=== PATIENT | female | born 1960 | race Hispanic/Latino ===

== ENCOUNTER 2018-09-18 01:42 | Emergency (ER) | payer MEDICARE ==
[~2018-09-18] VITALS: Ht 149.9 cm; Wt 77.1 kg
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
--- OUTSIDE RECORDS SUMMARY | 2018-09-18 01:45 | XMS REPORT | CCD ---
Author Author Auto Generated Organization [facility] [place] Address Unknown Phone Unavailable Care Team Providers Care Agriculture Laboratory Technician Name Role Phone Gary Samayoa CP Allergies, Adverse Reactions, Alerts Substance Reaction Status penicillin Tongue swelling Active Problem List Condition Effective Dates Status Cholesterol Active Diabetes mellitus Active Hernia Active Hypertension Active Infection1, 2 10/08/2014 Active Wrist sprain Active 1Dr. Danita's office ([place]) made aware 2sinus infection Medications Medication Instructions Start Date End Date Status Saline Lock Flush 10 mL, Soln, IV Push, As Indicated 10/15/2014 10/16/2014 Discontinued PRN for flush, first dose 10/15/14 18:30:00 CDT vancomycin Increased MRSA rate 10/15/2014 10/15/2014 Completed (facility/procedure), 500 mg, Soln-IV, IV Piggyback, Once, infuse over 90 minutes, first dose 10/15/14 9:00:00 CDT, stop date 10/15/14 9:00:00 CDT insulin regular 2 - 10 units, Injection, 10/16/2014 10/16/2014 Completed sliding scale LOW Subcutaneous, first dose 10/16/14 7:30:00 CDT insulin regular 2 - 10 units, Injection, 10/15/2014 10/15/2014 Completed sliding scale LOW Subcutaneous, first dose 10/15/14 21:00:00 CDT insulin regular 2 - 10 units, Injection, 10/15/2014 10/16/2014 Discontinued sliding scale LOW Subcutaneous, QIDACHS, first dose 10/15/14 21:00:00 CDT LR 1,000 mL 1,000 mL, IV, 30 mL/hr, start date 10/15/2014 10/15/2014 Discontinued 10/15/14 8:16:00 CDT Lidocaine 2% 0.2 mL 0.2 mL, Injection, Subcutaneous, 10/15/2014 10/15/2014 Completed IV Start [[place]] Once PRN for other (see comment), first dose 10/15/14 8:16:00 CDT Zofran ODT 4 mg oral 4 mg=1 tabs, Oral, q6hr, PRN 10/16/2014 10/16/2014 Discontinued tablet, nausea, # 120 tabs, 0 Refill(s) disintegrating Zofran 4 mg oral 4 mg=1 tabs, Oral, q6hr, PRN 10/16/2014 10/16/2014 Discontinued tablet nausea, # 120 tabs, 0 Refill(s) metFORMIN 1,000 mg=2 tabs, Tab, Oral, Daily, 10/15/2014 10/16/2014 Discontinued first dose 10/15/14 21:00:00 CDT Benicar 40 mg=1 tabs, Tab, Oral, Daily, 10/15/2014 10/16/2014 Discontinued first dose 10/15/14 21:00:00 CDT, Patient's Own Meds [place] 10 mg-325 mg 1 tabs, Tab, Oral, q4hr PRN for 10/15/2014 10/16/2014 Discontinued oral tablet pain mild-moderate (1-6), first dose 10/15/14 18:13:00 CDTMax 4gm acetaminophen in 24 hours [place] 10 mg-325 mg 12 tabs, Tab, Oral, q4hr PRN for 10/15/2014 10/15/2014 Discontinued oral tablet pain mild-moderate (1-6), first dose 10/15/14 18:12:00 CDTMax 4gm acetaminophen in 24 hours midazolam 1 mg=1 mL, Injection, IV, Once, 10/15/2014 10/15/2014 Completed first dose 10/15/14 10:19:00 CDT, stop date 10/15/14 10:19:00 CDT midazolam 1 mg=1 mL, Injection, IV, Once, 10/15/2014 10/15/2014 Completed first dose 10/15/14 10:13:00 CDT, stop date 10/15/14 10:13:00 CDT rocuronium 10 mg=1 mL, Injection, IV, Once, 10/15/2014 10/15/2014 Completed first dose 10/15/14 11:14:00 CDT, stop date 10/15/14 11:14:00 CDT fentaNYL 50 mcg=1 mL, Injection, IV, Once, 10/15/2014 10/15/2014 Completed first dose 10/15/14 11:14:00 CDT, stop date 10/15/14 11:14:00 CDT propofol 75 mg=7.5 mL, Emulsion, IV, Once, 10/15/2014 10/15/2014 Completed first dose 10/15/14 11:14:00 CDT, stop date 10/15/14 11:14:00 CDT HYDROmorphone 0.6 mg=0.3 mL, Injection, IV, Once, 10/15/2014 10/15/2014 Completed first dose 10/15/14 12:38:00 CDT, stop date 10/15/14 12:38:00 CDT fentaNYL 100 mcg=2 mL, Injection, IV, Once, 10/15/2014 10/15/2014 Completed first dose 10/15/14 10:33:00 CDT, stop date 10/15/14 10:33:00 CDT HYDROmorphone 0.2 mg=0.1 mL, Injection, IV, Once, 10/15/2014 10/15/2014 Completed first dose 10/15/14 11:53:00 CDT, stop date 10/15/14 11:53:00 CDT HYDROmorphone 0.2 mg=0.1 mL, Injection, IV, Once, 10/15/2014 10/15/2014 Completed first dose 10/15/14 12:06:00 CDT, stop date 10/15/14 12:06:00 CDT rocuronium 20 mg=2 mL, Injection, IV, Once, 10/15/2014 10/15/2014 Completed first dose 10/15/14 12:20:00 CDT, stop date 10/15/14 12:20:00 CDT neostigmine 4 mg=4 mL, Injection, IV, Once, 10/15/2014 10/15/2014 Completed first dose 10/15/14 13:00:00 CDT, stop date 10/15/14 13:00:00 CDT HYDROmorphone 0.4 mg=0.2 mL, Injection, IV, Once, 10/15/2014 10/15/2014 Completed first dose 10/15/14 12:42:00 CDT, stop date 10/15/14 12:42:00 CDT ibuprofen 800 mg 800 mg=1 tabs, Oral, TID, 0 10/12/2014 10/26/2014 Ordered oral tablet Refill(s), right wrist sprain Levaquin 500 mg oral 500 mg=1 tabs, Oral, qPM, 0 10/08/2014 10/26/2014 Ordered tablet Refill(s), sinus infection propofol 25 mg=2.5 mL, Emulsion, IV, Once, 10/15/2014 10/15/2014 Completed first dose 10/15/14 10:30:00 CDT, stop date 10/15/14 10:30:00 CDT rocuronium 10 mg=1 mL, Injection, IV, Once, 10/15/2014 10/15/2014 Completed first dose 10/15/14 10:27:00 CDT, stop date 10/15/14 10:27:00 CDT Misc Medication 1,000 mL, Soln-IV, IV, Once, first 10/15/2014 10/15/2014 Completed dose 10/15/14 10:58:00 CDT, stop date 10/15/14 10:58:00 CDT succinylcholine 120 mg=6 mL, Injection, IV, Once, 10/15/2014 10/15/2014 Completed first dose 10/15/14 10:27:00 CDT, stop date 10/15/14 10:27:00 CDT rocuronium 25 mg=2.5 mL, Injection, IV, Once, 10/15/2014 10/15/2014 Completed first dose 10/15/14 10:35:00 CDT, stop date 10/15/14 10:35:00 CDT lidocaine 4 mL, Injection, IV, Once, first 10/15/2014 10/15/2014 Completed dose 10/15/14 10:27:00 CDT, stop date 10/15/14 10:27:00 CDT propofol 100 mg=10 mL, Emulsion, IV, Once, 10/15/2014 10/15/2014 Completed first dose 10/15/14 10:27:00 CDT, stop date 10/15/14 10:27:00 CDT fentaNYL 100 mcg=2 mL, Injection, IV, Once, 10/15/2014 10/15/2014 Completed first dose 10/15/14 10:27:00 CDT, stop date 10/15/14 10:27:00 CDT acetaminophen 1,000 mg, Soln-IV, IV, Once, first 10/15/2014 10/15/2014 Completed dose 10/15/14 10:44:00 CDT, stop date 10/15/14 10:44:00 CDT vancomycin 1 gm, Powder-Inj, IV, Once, first 10/15/2014 10/15/2014 Completed dose 10/15/14 11:12:00 CDT, stop date 10/15/14 11:12:00 CDT LR 1,000 mL 1,000 mL, IV, 75 mL/hr, start date 10/15/2014 10/15/2014 Discontinued 10/15/14 13:46:00 CDT Saline Lock Flush 10 mL, Soln, IV Push, As Indicated 10/15/2014 10/15/2014 Discontinued PRN for flush, first dose 10/15/14 13:46:00 CDT ondansetron 4 mg=2 mL, Injection, IV Push, 10/15/2014 10/15/2014 Discontinued q15min PRN for nausea/vomiting, order duration: 2 doses, first dose 10/15/14 13:46:00 CDT, stop date Limited # of times ondansetron 8 mg=1 tabs, Tab-Dis, Oral, Once 10/15/2014 10/15/2014 Discontinued PRN for nausea/vomiting, first dose 10/15/14 13:46:00 CDT promethazine 12.5 mg=0.5 mL, Injection, IM, Once 10/15/2014 10/15/2014 Discontinued PRN for severe nausea, first dose 10/15/14 13:46:00 CDT diphenhydrAMINE 25 mg=0.5 mL, Injection, IV Push, 10/15/2014 10/15/2014 Discontinued Once PRN for itching, first dose 10/15/14 13:46:00 CDT morphine 2 mg=0.2 mL, Injection, IV Push, 10/15/2014 10/15/2014 Discontinued q5min PRN for pain, first dose 10/15/14 13:46:00 CDT Dilaudid 0.5 mg=0.25 mL, Injection, IV Push, 10/15/2014 10/15/2014 Discontinued q10min PRN for pain severe (7-10), first dose 10/15/14 13:46:00 CDT Xopenex 0.63 mg/3 mL 0.63 mg=3 mL, Soln, NEB, Once PRN 10/15/2014 10/15/2014 Discontinued inhalation solution for wheezing, first dose 10/15/14 13:46:00 CDT Lactated Ringers IV, start date 10/15/14 13:49:00 10/15/2014 10/15/2014 Completed Injection CDT, stop date 10/15/14 13:49:00 CDT ketorolac 30 mg=1 mL, Injection, IV, Once, 10/15/2014 10/15/2014 Completed first dose 10/15/14 13:00:00 CDT, stop date 10/15/14 13:00:00 CDT ePHEDrine 10 mg=0.2 mL, Injection, IV, Once, 10/15/2014 10/15/2014 Completed first dose 10/15/14 10:43:00 CDT, stop date 10/15/14 10:43:00 CDT Lactated Ringers IV, start date 10/15/14 13:05:00 10/15/2014 10/15/2014 Completed Injection CDT, stop date 10/15/14 13:05:00 CDT ondansetron 4 mg=2 mL, Injection, IV, Once, 10/15/2014 10/15/2014 Completed first dose 10/15/14 13:00:00 CDT, stop date 10/15/14 13:00:00 CDT glycopyrrolate 0.8 mg=4 mL, Injection, IV, Once, 10/15/2014 10/15/2014 Completed first dose 10/15/14 13:00:00 CDT, stop date 10/15/14 13:00:00 CDT Zofran 4 mg=2 mL, Injection, IV Push, q6hr 10/15/2014 10/15/2014 Deleted PRN for nausea/vomiting, first dose 10/15/14 13:12:00 CDT morphine 2 mg=0.2 mL, Injection, IV Push, 10/15/2014 10/15/2014 Deleted q1hr PRN for pain severe (7-10), order duration: 5 doses, first dose 10/15/14 13:12:00 CDT, stop date Limited # of times Tylenol with Codeine 1 tabs, Oral, q4hr, PRN for pain, # 10/15/2014 10/29/2014 Ordered #3 oral tablet 20 tabs, 0 Refill(s) Crestor 10 mg oral 10 mg=1 tabs, Oral, qHS, 0 10/12/2014 10/26/2014 Ordered tablet Refill(s), cholesterol metFORMIN 1000 mg 1,000 mg=1 tabs, Oral, Daily, 10/12/2014 10/26/2014 Ordered oral tablet instructed to hold AM of surgery, 0 Refill(s), diabetes instructed to hold AM of surgery Benicar 40 mg oral 40 mg=1 tabs, Oral, Daily, 10/12/2014 10/26/2014 Ordered tablet instructed to hodl AM of surgery, 0 Refill(s), htn instructed to hodl AM of surgery Vital Signs Most recent to oldest [Reference Range]: 1 2 3 Temperature Oral [35.8-37.3 DegC] 36.8 DegC (10/16/2014 07:45:00) 36.6 DegC (10/16/2014 04:00:00) 36.6 DegC (10/16/2014 00:00:00) Temperature Temporal Artery [36.3-37.8 DegC] 37.0 DegC (10/15/2014 13:40:00) Temperature Farenheit 98.24 DegF (10/16/2014 07:45:00) 97.88 DegF (10/16/2014 04:00:00) 97.88 DegF (10/16/2014 00:00:00) Temperature Temporal Fahrenheit 98.6 (10/15/2014 13:40:00) Peripheral Pulse Rate [55-105 bpm] 77 bpm (10/15/2014 08:08:00) Heart Rate Monitored [60-100 bpm] 79 bpm (10/16/2014 07:45:00) 88 bpm (10/16/2014 04:00:00) 83 bpm (10/16/2014 00:00:00) Respiratory Rate [12-20] 18 (10/16/2014 07:45:00) 18 (10/16/2014 04:00:00) 18 (10/16/2014 00:00:00) SpO2 [90-100 %] 95 % (10/16/2014 07:45:00) 98 % (10/16/2014 04:00:00) 98 % (10/16/2014 00:00:00) Systolic Blood Pressure [110-120 mmHg] 146 mmHg *HI* (10/16/2014 07:45:00) 139 mmHg *HI* (10/16/2014 04:00:00) 141 mmHg *HI* (10/16/2014 00:00:00) Diastolic Blood Pressure [65-85 mmHg] 69 mmHg (10/16/2014 07:45:00) 76 mmHg (10/16/2014 04:00:00) 83 mmHg (10/16/2014 00:00:00) Mean Arterial Pressure, Cuff 102.3 mmHg (10/16/2014 00:00:00) 97 mmHg (10/15/2014 20:00:00) 96.7 mmHg (10/15/2014 18:45:00) Height 149.86 cm (10/15/2014 08:08:00) 149.86 cm (10/12/2014 12:55:00) Height/Length Dosing 149.86 cm (10/15/2014 08:08:00) 149.86 cm (10/12/2014 12:55:00) Height Inches 59 in (10/15/2014 08:08:00) 59 in (10/12/2014 12:55:00) Weight 84.82 kg (10/15/2014 08:08:00) 84.82 kg (10/12/2014 12:55:00) Weight Dosing 84.82 kg (10/15/2014 08:08:00) 84.82 kg (10/12/2014 12:55:00) Weight Pounds 187 lb (10/15/2014 08:08:00) 187 lb (10/12/2014 12:55:00) Body Mass Index 37.77 kg/m2 (10/15/2014 08:08:00) 37.77 kg/m2 (10/12/2014 12:55:00) Results LABORATORY Most recent to oldest [Reference Range]: 1 2 3 4 5 6 Blood Glucose, Capillary [74-106 mg/dL] 159 mg/dL *HI* (10/16/2014 09:38:00) 159 mg/dL *HI* (10/16/2014 06:00:00) 159 mg/dL *HI* (10/16/2014 05:56:00) 283 mg/dL *HI* (10/15/2014 21:23:00) 283 mg/dL *HI* (10/15/2014 21:18:00) 161 mg/dL *HI* (10/15/2014 13:46:00) Radiology Reports Exam Date Time Procedure Performing Provider Status 10/15/2014 17:03:08 XR Wrist 2 Views Right [id number] Camelia Navid; Auth (Verified) Notes: (XR Wrist 2 Views Right [id number]) Reason For Exam: Swelling wrist FINAL REPORT EXAM DESCRIPTION: Radiographic examination of the right wrist in 2 portable views: CLINICAL HISTORY: Swelling wrist. COMPARISON: None Available. TECHNIQUE: AP and lateral views are obtained. FINDINGS: No evidence of fracture, subluxation or dislocation is noted . The bones are no rmally mineralized. The joint spaces are normal. There is evidence of soft tis roma swelling. . IMPRESSION: Soft tissue swelling. Electronically signed by: Mervat Osborne 10/15/2014 17:12 Final Dictated by: Mervat Odom MD Dictated DT/TM: 10/15/2014 5:12 pm Signed by: Mervat Odom MD Signed (Electronic Signature): 10/15/2014 5:12 pm Transcribed by: CHELSEY Procedures Procedures Date Related Diagnosis appendectomy 1991 cholecystectomy 1990 Electrocardiogram, routine ECG with at least 12 leads; 10/15/2014 00:00:00 tracing only, without interpretation and report Implantation of mesh or other prosthesis for open incisional 10/15/2014 00:00:00 or ventral hernia repair or mesh for closure of debridement for necrotizing soft tissue infection (List separately in addition to code for the incisional or ventral hernia repair) Radiologic examination, wrist; 2 views 10/15/2014 00:00:00 REPAIR HERNIA INCISIONAL OR VENTRAL-W/ME (N/A)1 10/15/2014 11:09:00 REPAIR HERNIA UMBILICAL-OLDER THAN 5 YEA (N/A)2 10/15/2014 11:09:00 REPAIR INITIAL HERNIA INCISIONAL OR VENT (N/A)3 10/15/2014 11:09:00 Repair initial incisional or ventral hernia; reducible 10/15/2014 00:00:00 Repair umbilical hernia, age 5 years or older; reducible 10/15/2014 00:00:00 tubal ligation WRIST SPRAIN4 10/07/2014 00:00:00 1auto-populated from documented surgical case 2auto-populated from documented surgical case 3auto-populated from documented surgical case 4patient states slipped on water and fell on Right wrist. has not seen physician for pain. pt wearing brace for support.
--- OUTSIDE RECORDS SUMMARY | 2018-09-18 01:45 | XMS REPORT | Continuity of Care Document ---
Author Author Kimi yolanda [facility] Interface Address Unknown Phone Unavailable Problems Problem Status Onset Date Classification Date Reported Comments Source Infection<sup>1, 2</sup> 10/08/2014 Problem 10/18/2014 2sinus infection [facility] Cholesterol Problem 10/18/2014 [facility] Diabetes mellitus Problem 10/18/2014 [facility] Hernia Problem 10/18/2014 [facility] Hypertension Problem 10/18/2014 [facility] Wrist sprain Problem 10/18/2014 [facility] Medications Medication Details Route Status Patient Instructions Ordering Provider Order Date Source Zofran ODT 4 mg oral tablet, disintegrating 4 mg=1 tabs, Oral, q6hr, PRN nausea, # 120 tabs, 0 Refill(s) Inactive [facility] 10/16/2014 [facility] Zofran 4 mg oral tablet 4 mg=1 tabs, Oral, q6hr, PRN nausea, # 120 tabs, 0 Refill(s) Inactive [facility] 10/16/2014 [facility] insulin regular sliding scale LOW 2 - 10 units, Injection, Subcutaneous, first dose 10/16/14 7:30:00 CDT Inactive [facility] 10/16/2014 [facility] insulin regular sliding scale LOW 2 - 10 units, Injection, Subcutaneous, first dose 10/15/14 21:00:00 CDT Inactive [facility] 10/16/2014 [facility] metFORMIN 1,000 mg=2 tabs, Tab, Oral, Daily, first dose 10/15/14 21:00:00 CDT No Longer Active [facility] 10/16/2014 [facility] Benicar 40 mg=1 tabs, Tab, Oral, Daily, first dose 10/15/14 21:00:00 CDT, Patient's Own Meds No Longer Active [facility] 10/16/2014 [facility] Saline Lock Flush 10 mL, Soln, IV Push, As Indicated PRN for flush, first dose 10/15/14 18:30:00 CDT No Longer Active [facility] 10/15/2014 [facility] Emden 10 mg-325 mg oral tablet 1 tabs, Tab, Oral, q4hr PRN for pain mild-moderate (1-6), first dose 10/15/14 18:13:00 CDTMax 4gm acetaminophen in 24 hours No Longer Active [facility] 10/15/2014 [facility] [place] 10 mg-325 mg oral tablet 12 tabs, Tab, Oral, q4hr PRN for pain mild-moderate (1-6), first dose 10/15/14 18:12:00 CDTMax 4gm acetaminophen in 24 hours Inactive [facility] 10/15/2014 [facility] Lactated Ringers Injection IV, start date 10/15/14 13:49:00 CDT, stop date 10/15/14 13:49:00 CDT Inactive [place] 10/15/2014 [facility] LR 1,000 mL 1,000 mL, IV, 75 mL/hr, start date 10/15/14 13:46:00 CDT Inactive [place] 10/15/2014 [facility] Saline Lock Flush 10 mL, Soln, IV Push, As Indicated PRN for flush, first dose 10/15/14 13:46:00 CDT Inactive [place] 10/15/2014 [facility] ondansetron 4 mg=2 mL, Injection, IV Push, q15min PRN for nausea/vomiting, order duration: 2 doses, first dose 10/15/14 13:46:00 CDT, stop date Limited # of times Inactive [place] 10/15/2014 [facility] promethazine 12.5 mg=0.5 mL, Injection, IM, Once PRN for severe nausea, first dose 10/15/14 13:46:00 CDT Inactive [place] 10/15/2014 [facility] diphenhydrAMINE 25 mg=0.5 mL, Injection, IV Push, Once PRN for itching, first dose 10/15/14 13:46:00 CDT Inactive [place] 10/15/2014 [facility] morphine 2 mg=0.2 mL, Injection, IV Push, q5min PRN for pain, first dose 10/15/14 13:46:00 CDT Inactive [place] 10/15/2014 [facility] Dilaudid 0.5 mg=0.25 mL, Injection, IV Push, q10min PRN for pain severe (7-10), first dose 10/15/14 13:46:00 CDT Inactive [place] 10/15/2014 [facility] Xopenex 0.63 mg/3 mL inhalation solution 0.63 mg=3 mL, Soln, NEB, Once PRN for wheezing, first dose 10/15/14 13:46:00 CDT Inactive [place] 10/15/2014 [facility] Zofran 4 mg=2 mL, Injection, IV Push, q6hr PRN for nausea/vomiting, first dose 10/15/14 13:12:00 CDT Inactive [facility] 10/15/2014 [facility] morphine 2 mg=0.2 mL, Injection, IV Push, q1hr PRN for pain severe (7-10), order duration: 5 doses, first dose 10/15/14 13:12:00 CDT, stop date Limited # of times Inactive [facility] 10/15/2014 [facility] Tylenol with Codeine #3 oral tablet 1 tabs, Oral, q4hr, PRN for pain, # 20 tabs, 0 Refill(s) Active [facility] 10/15/2014 [facility] Lactated Ringers Injection IV, start date 10/15/14 13:05:00 CDT, stop date 10/15/14 13:05:00 CDT Inactive [place] 10/15/2014 [facility] neostigmine 4 mg=4 mL, Injection, IV, Once, first dose 10/15/14 13:00:00 CDT, stop date 10/15/14 13:00:00 CDT Inactive [place] 10/15/2014 [facility] ketorolac 30 mg=1 mL, Injection, IV, Once, first dose 10/15/14 13:00:00 CDT, stop date 10/15/14 13:00:00 CDT Inactive [place] 10/15/2014 [facility] ondansetron 4 mg=2 mL, Injection, IV, Once, first dose 10/15/14 13:00:00 CDT, stop date 10/15/14 13:00:00 CDT Inactive [place] 10/15/2014 [facility] glycopyrrolate 0.8 mg=4 mL, Injection, IV, Once, first dose 10/15/14 13:00:00 CDT, stop date 10/15/14 13:00:00 CDT Inactive [place] 10/15/2014 [facility] HYDROmorphone 0.4 mg=0.2 mL, Injection, IV, Once, first dose 10/15/14 12:42:00 CDT, stop date 10/15/14 12:42:00 CDT Inactive [place] 10/15/2014 [facility] HYDROmorphone 0.6 mg=0.3 mL, Injection, IV, Once, first dose 10/15/14 12:38:00 CDT, stop date 10/15/14 12:38:00 CDT Inactive [place] 10/15/2014 [facility] rocuronium 20 mg=2 mL, Injection, IV, Once, first dose 10/15/14 12:20:00 CDT, stop date 10/15/14 12:20:00 CDT Inactive [place] 10/15/2014 [facility] HYDROmorphone 0.2 mg=0.1 mL, Injection, IV, Once, first dose 10/15/14 12:06:00 CDT, stop date 10/15/14 12:06:00 CDT Inactive [place] 10/15/2014 [facility] HYDROmorphone 0.2 mg=0.1 mL, Injection, IV, Once, first dose 10/15/14 11:53:00 CDT, stop date 10/15/14 11:53:00 CDT Inactive [place] 10/15/2014 [facility] rocuronium 10 mg=1 mL, Injection, IV, Once, first dose 10/15/14 11:14:00 CDT, stop date 10/15/14 11:14:00 CDT Inactive [place] 10/15/2014 [facility] fentaNYL 50 mcg=1 mL, Injection, IV, Once, first dose 10/15/14 11:14:00 CDT, stop date 10/15/14 11:14:00 CDT Inactive [place] 10/15/2014 [facility] propofol 75 mg=7.5 mL, Emulsion, IV, Once, first dose 10/15/14 11:14:00 CDT, stop date 10/15/14 11:14:00 CDT Inactive [place] 10/15/2014 [facility] vancomycin 1 gm, Powder-Inj, IV, Once, first dose 10/15/14 11:12:00 CDT, stop date 10/15/14 11:12:00 CDT Inactive [place] 10/15/2014 [facility] Misc Medication 1,000 mL, Soln-IV, IV, Once, first dose 10/15/14 10:58:00 CDT, stop date 10/15/14 10:58:00 CDT Inactive [facility] 10/15/2014 [facility] acetaminophen 1,000 mg, Soln-IV, IV, Once, first dose 10/15/14 10:44:00 CDT, stop date 10/15/14 10:44:00 CDT Inactive [place] 10/15/2014 [facility] ePHEDrine 10 mg=0.2 mL, Injection, IV, Once, first dose 10/15/14 10:43:00 CDT, stop date 10/15/14 10:43:00 CDT Inactive [place] 10/15/2014 [facility] rocuronium 25 mg=2.5 mL, Injection, IV, Once, first dose 10/15/14 10:35:00 CDT, stop date 10/15/14 10:35:00 CDT Inactive [place] 10/15/2014 [facility] fentaNYL 100 mcg=2 mL, Injection, IV, Once, first dose 10/15/14 10:33:00 CDT, stop date 10/15/14 10:33:00 CDT Inactive [place] 10/15/2014 [facility] propofol 25 mg=2.5 mL, Emulsion, IV, Once, first dose 10/15/14 10:30:00 CDT, stop date 10/15/14 10:30:00 CDT Inactive [place] 10/15/2014 [facility] rocuronium 10 mg=1 mL, Injection, IV, Once, first dose 10/15/14 10:27:00 CDT, stop 10/15/14 10:27:00 CDT Inactive [place] 10/15/2014 [facility] succinylcholine 120 mg=6 mL, Injection, IV, Once, first dose 10/15/14 10:27:00 CDT, stop 10/15/14 10:27:00 CDT Inactive [place] 10/15/2014 [facility] lidocaine 4 mL, Injection, IV, Once, first dose 10/15/14 10:27:00 CDT, stop 10/15/14 10:27:00 CDT Inactive [place] 10/15/2014 [facility] propofol 100 mg=10 mL, Emulsion, IV, Once, first dose 10/15/14 10:27:00 CDT, stop date 10/15/14 10:27:00 CDT Inactive [place] 10/15/2014 [facility] fentaNYL 100 mcg=2 mL, Injection, IV, Once, first dose 10/15/14 10:27:00 CDT, stop 10/15/14 10:27:00 CDT Inactive [place] 10/15/2014 [facility] midazolam 1 mg=1 mL, Injection, IV, Once, first dose 10/15/14 10:19:00 CDT, stop 10/15/14 10:19:00 CDT Inactive [place] 10/15/2014 [facility] midazolam 1 mg=1 mL, Injection, IV, Once, first dose 10/15/14 10:13:00 CDT, stop 10/15/14 10:13:00 CDT Inactive [place] 10/15/2014 [facility] vancomycin Increased MRSA rate (facility/procedure), 500 mg, Soln-IV, IV Piggyback, Once, infuse over 90 minutes, first dose 10/15/14 9:00:00 CDT, stop 10/15/14 9:00:00 CDT Inactive [facility] 10/15/2014 [facility] LR 1,000 mL 1,000 mL, IV, 30 mL/hr, start date 10/15/14 8:16:00 CDT Inactive [place] 10/15/2014 [facility] Lidocaine 2% 0.2 mL IV Start [[facility]] 0.2 mL, Injection, Subcutaneous, Once PRN for other (see comment), first dose 10/15/14 8:16:00 CDT Inactive [place] 10/15/2014 [facility] ibuprofen 800 mg oral tablet 800 mg=1 tabs, Oral, TID, 0 Refill(s), right wrist sprain Active 10/12/2014 [facility] Crestor 10 mg oral tablet 10 mg=1 tabs, Oral, qHS, 0 Refill(s), cholesterol Active 10/12/2014 [facility] metFORMIN 1000 mg oral tablet 1,000 mg=1 tabs, Oral, Daily, instructed to hold AM of surgery, 0 Refill(s), diabetesinstructed to hold AM of surgery Active 10/12/2014 [facility] Benicar 40 mg oral tablet 40 mg=1 tabs, Oral, Daily, instructed to hodl AM of surgery, 0 Refill(s), htninstructed to hodl AM of surgery Active 10/12/2014 [facility] Levaquin 500 mg oral tablet 500 mg=1 tabs, Oral, qPM, 0 Refill(s), sinus infection Active 10/08/2014 [facility] Allergies, Adverse Reactions, Alerts Substance Category Reaction Severity Reaction type Status Date Reported Comments Source penicillin drug allergy Allergy [facility] Immunizations Immunization Date Given Site Status Last Updated Comments Source Results Order Name Results Value Reference Range Date Interpretation Comments Source LABORATORY Blood Glucose, Capillary 159 mg/dL 74 - 106 10/16/2014 [facility] LABORATORY Blood Glucose, Capillary 159 mg/dL 74 - 106 10/16/2014 [facility] LABORATORY Blood Glucose, Capillary 159 mg/dL 74 - 106 10/16/2014 [facility] LABORATORY Blood Glucose, Capillary 283 mg/dL 74 - 106 10/16/2014 [facility] LABORATORY Blood Glucose, Capillary 283 mg/dL 74 - 106 10/16/2014 [facility] LABORATORY Blood Glucose, Capillary 161 mg/dL 74 - 106 10/15/2014 [facility] Vital Signs Vital Sign Value Date Comments Source Diastolic (mm Hg) 69 10/16/2014 [facility] Respitory Rate 18 10/16/2014 [facility] Systolic (mm Hg) 146 10/16/2014 [facility] Heart Rate 79 10/16/2014 [facility] Temperature Oral (F) 36.8 Mariajose 10/16/2014 [facility] Systolic (mm Hg) 139 10/16/2014 [facility] Respitory Rate 18 10/16/2014 [facility] Heart Rate 88 10/16/2014 [facility] Temperature Oral (F) 36.6 Mariajose 10/16/2014 [facility] Diastolic (mm Hg) 76 10/16/2014 [facility] Diastolic (mm Hg) 83 10/16/2014 [facility] Respitory Rate 18 10/16/2014 [facility] Systolic (mm Hg) 141 10/16/2014 [facility] Heart Rate 83 10/16/2014 [facility] Temperature Oral (F) 36.6 Mariajose 10/16/2014 [facility] Temperature Oral (F) 37.0 Mariajose 10/15/2014 [facility] Weight 84.82 10/15/2014 [facility] Height 149.86 cm 10/15/2014 [facility] Weight 37.77 10/15/2014 [facility] Peripheral Pulse Rate 77 10/15/2014 [facility] Height 149.86 cm 10/12/2014 [facility] Weight 84.82 10/12/2014 [facility] Weight 37.77 10/12/2014 [facility] Encounters Location Location Details Encounter Type Encounter Number Reason For Visit Attending Provider ADM Date DC Date Status Source [facility] Outpatient [id number] Gary Javiersiria 10/15/2014 10/16/2014 Active [facility] Procedures Procedure Code Date Perfomer Comments Source REPAIR HERNIA INCISIONAL OR VENTRAL-W/ME (N/A)<sup>1</sup> 10/15/2014 Danita 1auto-populated from documented surgical case [facility] REPAIR HERNIA UMBILICAL-OLDER THAN 5 YEA (N/A)<sup>2</sup> 10/15/2014 Danita 2auto-populated from documented surgical case [facility] REPAIR INITIAL HERNIA INCISIONAL OR VENT (N/A)<sup>3</sup> 10/15/2014 Javiersiria 3auto-populated from documented surgical case [facility] Electrocardiogram, routine ECG with at least 12 leads; tracing only, without interpretation and report [id number] 10/15/2014 [facility] Implantation of mesh or other prosthesis for open incisional or ventral hernia repair or mesh for closure of debridement for necrotizing soft tissue infection (List separately in addition to code for the incisional or ventral hernia repair) [id number] 10/15/2014 [facility] Radiologic examination, wrist; 2 views [id number] 10/15/2014 [facility] Repair initial incisional or ventral hernia; reducible [id number] 10/15/2014 [facility] Repair umbilical hernia, age 5 years or older; reducible [id number] 10/15/2014 [facility] WRIST SPRAIN<sup>4</sup> 842.0 10/07/2014 4patient states slipped on water and fell on Right wrist. has not seen physician for pain. pt wearing brace for support. [facility] appendectomy 07/26/1991 [facility] cholecystectomy 07/26/1990 [facility] tubal ligation [facility]
--- OUTSIDE RECORDS SUMMARY | 2018-09-18 01:46 | XMS REPORT ---
Author Author [facility] Address Unknown Phone Unavailable Care Team Providers Care Recordings Librarian Name Role Phone KILLIAN, DR JOSE LEO Unavailable Unavailable COLEEN, DR Lucila ROSARIO Unavailable Unavailable SOFY, DR JOHNSON Unavailable Unavailable TRAM, DR CASTAÑEDA Unavailable Unavailable RUSSELL, DR Marilu SIDDIQUI Unavailable Unavailable OEI, HILARY Unavailable Unavailable AMOR, DR CORONADO Unavailable Unavailable TANISHA, DR SANTIAGO Unavailable Unavailable JEFFREY CRAWFORD Unavailable Unavailable , DR BENÍTEZ Unavailable Unavailable FLORECITA, DR CURTIS Unavailable Unavailable Sanjana FLORES Unavailable Unavailable TERI, Laina RAMEY Unavailable Unavailable Problems This patient has no known problems. Allergies, Adverse Reactions, Alerts This patient has no known allergies or adverse reactions. Medications This patient has no known medications. Encounters Start Date/Time End Date/Time Encounter Type Admission Type Attending [facility] Facility Care Department Encounter ID 2018-09-16 09:27:00 2018-09-16 10:39:00 Emergency E JOSE DAILY [facility] [id number] 2018-08-06 10:26:00 2018-08-06 11:21:00 Emergency E JOSE DAILY [facility] [id number] 2018-06-17 12:19:00 2018-06-17 14:16:00 Emergency E ABRAHAM HORNE [facility] [id number] 2018-06-14 20:27:00 2018-06-14 21:29:00 Emergency E ALEX GOETZ [facility] [id number] 2018-05-23 13:22:00 2018-05-23 23:59:00 Outpatient C MADDY UGALDE [facility] [id number] 2018-05-16 10:15:00 2018-05-16 12:10:00 Emergency E ARTUR WELLS [facility] [id number] 2018-04-09 10:28:00 2018-04-09 13:35:00 Emergency E HILARY ETIENNE [facility] [id number] 2018-02-14 15:07:00 2018-02-14 16:50:00 Emergency E IVONNE CHINCHILLA [facility] [id number] 2017-12-07 08:13:00 2017-12-07 10:08:00 Emergency E PAMELA GARAY [facility] [id number] 2017-10-17 10:27:00 2017-10-17 11:12:00 Emergency E JACKELIN CHAMBERLAIN [facility] [id number] 2017-10-15 19:21:00 2017-10-15 22:15:00 Emergency E KIRSTEN BERNABE [facility] [id number] 2017-08-16 17:56:00 2017-08-16 19:45:00 Emergency E JORGITO FLORES [facility] [id number] 2017-08-01 00:58:00 2017-08-01 03:07:00 Emergency E FLORECITA, KIRSTEN [facility] [id number] 2017-02-02 21:21:00 2017-02-02 22:14:00 Emergency E FLORECITA, KIRSTEN [facility] [id number] Results Test Description Test Time Test Comments Text Results Atomic Results Result Comments URINALYSIS WITH MICRO *WW* 2018-09-16 10:16:00 COLOR (test code=COLU) YELLOW YELLOW CLARITY (test code=CLA) SLT HAZY CLEAR GLUCOSE UR (test code=UA GLUCOSE) 2+ NEGATIVE BILI UR (test code=BILE) NEGATIVE NEGATIVE KETONES UR (test code=CHITO) TRACE NEGATIVE SP GRAVITY (test code=SPGR) >=1.030 1.005-1.030 PH UR (test code=PH) 5.5 4.5-8.0 PROTEIN UR (test code=PU) TRACE NEGATIVE UROBIL UR (test code=UROQ) 0.2 EU/dL 0.2-1.0 NITRITE UR (test code=NITRITE) NEGATIVE NEGATIVE BLOOD UR (test code=UA BLOOD) NEGATIVE NEGATIVE LEUK ES UR (test code=LEUK) NEGATIVE NEGATIVE WBC UR (test code=UWBC) 0 /HPF 0-5 RBC UR (test code=URBC) 2 /HPF 0-2 EPITH UR (test code=UEPC) FEW /LPF FEW BACTERIA UR (test code=UBACT) FEW /HPF NONE CAST UR (test code=CAST) /LPF NONE CRYSTAL UR (test code=CRYU) / LPF NONE MUCUS UR (test code=MUC) / HPF NONE AMORPH UR (test code=LULY) / HPF NONE TRICH UR (test code=UTRICH) /HPF NONE YEAST UR (test code=UY) /HPF NONE SPERM UR (test code=USPERM) /HPF NONE COMPREHENSIVE METABOLIC FREED *WW*2018-09-16 10:12:00* Test Item Value Reference Range Comments GLUCOSE (test code=06D) 256 mg/dL 75-100 SODIUM (test code=01A) 138 mmol/L 136-145 POTASSIUM (test code=01B) 3.6 mmol/L 3.6-5.1 CHLORIDE (test code=04A) 102 mmol/L 98-107 CO2 (test code=02A) 27 mmol/L 22-32 ANION GAP (test code=ANG) 12.4 mmol/L BUN (test code=05D) 19 mg/dL 7-18 CREATININE (test code=03E) 0.8 mg/dL 0.4-1.1 BUN/CREA (test code=BCR) 23 12-20 CALCIUM (test code=09D) 8.4 mg/dL 8.3-9.5 BILI TOTAL (test code=11A) 0.4 mg/dL 0.2-1.0 PROTEIN (test code=07D) 7.4 g/dL 6.4-8.2 ALBUMIN (test code=08D) 3.6 g/dL 3.5-4.8 GLOBULIN (test code=GLB) 3.8 g/dL 1.5-3.8 ALB/GLOB (test code=AGRR) 0.9 1.0-2.6 ALK PHOS (test code=35A) 140 IU/L 42-121 AST (test code=30A) 11 IU/L <=42 ALT (test code=31A) 24 IU/L <=78 LIPASE SERUM WW2018-09-16 10:07:00* Test Item Value Reference Range Comments LIPASE (test code=60A) 230 IU/L 73-393 TROPONIN I *WW*2018-09-16 10:07:00* Test Item Value Reference Range Comments TROPONIN I (test code=A84) <0.015 ng/mL 0.000-0.045 CBC (INCLUDES AUTOMATED DIFFERENTIAL)*[id number] 09:59:00* Test Item Value Reference Range Comments WBC (test code=WBC) 12.8 10\S\3/uL 4.5-11.0 RBC (test code=RBC) 4.62 10\S\6/uL 4.20-5.60 HGB (test code=HBG) 13.8 g/dL 12.0-15.5 HCT (test code=HCT) 41.0 % 35.0-44.0 MCV (test code=MCV) 88.7 fL 81.0-99.0 MCH (test code=MCH) 29.9 pg 27.0-31.0 MCHC (test code=MCHC) 33.7 g/dL 32.0-36.0 RDW (test code=RDW) 12.8 % 11.5-14.5 PLT (test code=PLT) 362 10\S\3/uL 130-400 MPV (test code=MPV) 9.8 fL 9.4-12.4 NEUTROP # (test code=NE#) 8.7 10\S\3/uL 1.6-8.0 LYMPH # (test code=LY#) 3.2 10\S\3/uL 1.1-3.5 MONOCYTE # (test code=MO#) 0.7 10\S\3/uL 0.0-1.1 EOSINOPH # (test code=EO#) 0.1 10\S\3/uL 0.0-0.7 BASOPHIL # (test code=BA#) 0.1 10\S\3/uL 0.0-0.3 IG # (test code=IG#) 0.04 10\S\3/uL 0.00-0.06 NRBC # (test code=NRBC#) 0.00 10\S\3/uL 0.00-0.01 NEUTROPH % (test code=NE%) 67.9 % 35.0-73.0 LYMPH % (test code=LY%) 25.1 % 20.0-55.0 MONO % (test code=MO%) 5.2 % 2.5-10.0 EOSINOPH % (test code=EO%) 0.8 % 0.0-5.0 BASOPHIL % (test code=BA%) 0.7 % 0.0-2.0 IG % (test code=IG%) 0.3 % 0.0-0.8 NRBC% (test code=NRBC%) 0.0 % 0.0-0.2 MANDIFF (test code=WMDIFF) NO NO RBC MORPH (test code=WRBCMOR) NORMAL URINALYSIS *WW*2018-08-06 10:53:00* Test Item Value Reference Range Comments COLOR (test code=COLU) YELLOW YELLOW CLARITY (test code=CLA) CLEAR CLEAR GLUCOSE UR (test code=UA GLUCOSE) 3+ NEGATIVE BILI UR (test code=BILE) NEGATIVE NEGATIVE KETONES UR (test code=CHITO) TRACE NEGATIVE SP GRAVITY (test code=SPGR) >=1.030 1.005-1.030 PH UR (test code=PH) 6.0 4.5-8.0 PROTEIN UR (test code=PU) NEGATIVE NEGATIVE UROBIL UR (test code=UROQ) 0.2 EU/dL 0.2-1.0 NITRITE UR (test code=NITRITE) NEGATIVE NEGATIVE BLOOD UR (test code=UA BLOOD) NEGATIVE NEGATIVE LEUK ES UR (test code=LEUK) NEGATIVE NEGATIVE AUAM (test code=WAUAM) NO NO XR ABDOMEN AP 1 VIEW EA 2018-06-17 14:07:26Abdomen, one viewLocation Code: [id number] history: ConstipatedComments: Large amount of stool is present within the colon. There are nosignificantly dilated loops of bowel proximally. There is no visualizedabnormal calcification. The visualized osseous structures are intact. Surgicalclips overlie the right upper quadrant.Impression: Large amount stool throughout colon suggesting constipation. MRI SPINE LUMBAR W/O CONTRAST 2018-05-23 14:32:24MRI Lumbar Spine without contrastLocation code: [id number]: [id number]: Lumbosacral [id number]: Lumbosacral radiculopathyCOMPARISON: None.Technique: Multiplanar multisequence MR imaging of the lumbar spine wasperformed without contrast. Findings: Lumbar vertebral height and marrow signal are preserved throughout. 5lumbar segments are assumed. The conus terminates normally at T12-L1. Theparaspinal soft tissues are unremarkable. Multilevel spondylitic changes arenoted as follows:L1-L2: Mild disc desiccation without disc herniation or stenosis.L2-L3: Mild disc desiccation with minimal annular bulge and mild facetarthropathy without stenosis or nerve root compromise.L3-L4: Disc desiccation with broad-based 2 mm anterior bulge and moderatebilateral facet arthropathy creating flattening of the thecal sac withoutsignificant stenosis or nerve compromise.L4-L5: Grade 1 spondylolisthesis of L4 relative to L5 noted without evidence ofspondylolysis. There is bilateral posterior lateral 3 mm discprotrusion/osteophyte complexes with moderate facet arthropathy creatingmoderate stenosis with left greater than right-sided L5 nerve root andforaminal encroachment.L5-S1: Mild disc desiccation with mild facet arthropathy without discherniation or stenosis.IMPRESSION: 1. Grade 1 spondylolisthesis of L4 relative to L5 with bilateral posterolateral3 mm disc protrusions along with left greater than right-sided facetarthropathy creating moderate stenosis with left greater than right-sided D4uieqg root and foraminal encroachment. Please see above.CT LUMBAR SPINE W/O CONTRAST *WW*2018-05-16 11:53:41CT Lumbar Spine without contrastLocation code: [id number]: R52: PAIN, UNSPECIFIED, radiculopathyCOMPARISON: None.Technique: Helical CT of the lumbar spine was performed without contrast. Thinsection axial, coronal, and sagittal images were obtained. Automatic exposurecontrol was utilized. Total DLP: 463.21 mGycmFindings: There is no acute fracture or malalignment. The paraspinal softtissues are unremarkable. Multilevel spondylitic changes are noted as follows:L1-L2: No significant central canal or foraminal stenosis.L2-L3: No significant central canal or foraminal stenosis.L3-L4: Mild annular bulging along with mild hypertrophic facet arthropathy andligamentum flavum hypertrophy resulting in mild central canal stenosis.L4-L5: 4 mm anterolisthesis of L4 on L5 with broad-based posterior protrusionand moderate hypertrophic facet arthropathy resulting in gfht-gq-gkczwsbphmcrbdg canal stenosis.L5-S1: No significant central canal or foraminal stenosis.IMPRESSION:1. No acute fracture.2. Grade 1 anterolisthesis of L4 on L5 with associated degenerative discdisease and facet arthropathy resulting in xtli-kn-gmbuyffa central canalstenosis at this level. LIVER PROFILE 2018-04-09 12:10:00* Test Item Value Reference Range Comments BILI TOTAL (test code=11A) 0.5 mg/dL 0.2-1.0 BILI DIRCT (test code=12A) 0.1 mg/dL 0.0-0.2 BILI INDIR (test code=BILII) 0.4 mg/dL <=0.8 PROTEIN (test code=07D) 7.6 g/dL 6.4-8.2 ALBUMIN (test code=08D) 3.5 g/dL 3.5-4.8 GLOBULIN (test code=GLB) 4.1 g/dL 1.5-3.8 ALB/GLOB (test code=AGRR) 0.9 1.0-2.6 ALK PHOS (test code=35A) 126 IU/L 42-121 AST (test code=30A) 27 IU/L <=42 ALT (test code=31A) 39 IU/L <=78 AMYLASE AND LIPASE 2018-04-09 12:08:00* Test Item Value Reference Range Comments AMYLASE (test code=10A) 24 U/L 28-100 LIPASE (test code=60A) 123 IU/L 73-393 BASIC METABOLIC PANEL 2018-04-09 12:04:00* Test Item Value Reference Range Comments GLUCOSE (test code=06D) 175 mg/dL 75-100 SODIUM (test code=01A) 139 mmol/L 136-145 POTASSIUM (test code=01B) 3.6 mmol/L 3.6-5.1 CHLORIDE (test code=04A) 104 mmol/L 98-107 CO2 (test code=02A) 29 mmol/L 22-32 ANION GAP (test code=ANG) 9.2 mmol/L BUN (test code=05D) 10 mg/dL 7-18 CREATININE (test code=03E) 0.7 mg/dL 0.4-1.1 BUN/CREA (test code=BCR) 15 12-20 CALCIUM (test code=09D) 8.7 mg/dL 8.3-9.5 URINALYSIS WITH MICRO 2018-04-09 11:57:00* Test Item Value Reference Range Comments COLOR (test code=COLU) YELLOW YELLOW CLARITY (test code=CLA) SLT HAZY CLEAR GLUCOSE UR (test code=UA GLUCOSE) NEGATIVE NEGATIVE BILI UR (test code=BILE) NEGATIVE NEGATIVE KETONES UR (test code=CHITO) TRACE NEGATIVE SP GRAVITY (test code=SPGR) 1.025 1.005-1.030 PH UR (test code=PH) 6.0 4.5-8.0 PROTEIN UR (test code=PU) NEGATIVE NEGATIVE UROBIL UR (test code=UROQ) 0.2 EU/dL 0.2-1.0 NITRITE UR (test code=NITRITE) NEGATIVE NEGATIVE BLOOD UR (test code=UA BLOOD) NEGATIVE NEGATIVE LEUK ES UR (test code=LEUK) TRACE NEGATIVE WBC UR (test code=UWBC) 2 /HPF 0-5 RBC UR (test code=URBC) 2 /HPF 0-2 EPITH UR (test code=UEPC) FEW /LPF FEW BACTERIA UR (test code=UBACT) FEW /HPF NONE CAST UR (test code=CAST) /LPF NONE CRYSTAL UR (test code=CRYU) / LPF NONE MUCUS UR (test code=MUC) / HPF NONE AMORPH UR (test code=LULY) / HPF NONE TRICH UR (test code=UTRICH) /HPF NONE YEAST UR (test code=UY) /HPF NONE SPERM UR (test code=USPERM) /HPF NONE CBC (INCLUDES AUTOMATED DIFFERENTIAL)*[id number] 11:51:00* Test Item Value Reference Range Comments WBC (test code=WBC) 8.9 10\S\3/uL 4.5-11.0 RBC (test code=RBC) 4.69 10\S\6/uL 4.20-5.60 HGB (test code=HBG) 13.8 g/dL 12.0-15.5 HCT (test code=HCT) 41.2 % 35.0-44.0 MCV (test code=MCV) 87.8 fL 81.0-99.0 MCH (test code=MCH) 29.4 pg 27.0-31.0 MCHC (test code=MCHC) 33.5 g/dL 32.0-36.0 RDW (test code=RDW) 12.9 % 11.5-14.5 PLT (test code=PLT) 311 10\S\3/uL 130-400 MPV (test code=MPV) 9.7 fL 9.4-12.4 NEUTROP # (test code=NE#) 5.5 10\S\3/uL 1.6-8.0 LYMPH # (test code=LY#) 2.7 10\S\3/uL 1.1-3.5 MONOCYTE # (test code=MO#) 0.5 10\S\3/uL 0.0-1.1 EOSINOPH # (test code=EO#) 0.1 10\S\3/uL 0.0-0.7 BASOPHIL # (test code=BA#) 0.1 10\S\3/uL 0.0-0.3 IG # (test code=IG#) 0.02 10\S\3/uL 0.00-0.06 NRBC # (test code=NRBC#) 0.00 10\S\3/uL 0.00-0.01 NEUTROPH % (test code=NE%) 61.6 % 35.0-73.0 LYMPH % (test code=LY%) 30.2 % 20.0-55.0 MONO % (test code=MO%) 5.5 % 2.5-10.0 EOSINOPH % (test code=EO%) 1.6 % 0.0-5.0 BASOPHIL % (test code=BA%) 0.9 % 0.0-2.0 IG % (test code=IG%) 0.2 % 0.0-0.8 NRBC% (test code=NRBC%) 0.0 % 0.0-0.2 MANDIFF (test code=WMDIFF) NO NO RBC MORPH (test code=WRBCMOR) NORMAL XR FOOT LEFT COMPLETE 3 VIEWS2018-02-14 15:55:21Exam: Left foot 3 views AP, lateral and oblique.Location: [id number]: [id number]: Injury of toe of left footFINDINGS: No significant bone or joint abnormality is seen. The bonycortices are intact. The joint spaces are well preserved. The soft tissuesare normal.Impression:Unremarkable exam.CARDIAC PROFILE 2017-12-07 09:08:00* Test Item Value Reference Range Comments TROPONIN I (test code=A84) <0.015 ng/mL 0.000-0.045 CKMB (test code=A49) <1.0 ng/mL <=3.6 CPK (test code=32A) 68 IU/L 26-192 LIPASE SERUM WW2017-12-07 09:06:00* Test Item Value Reference Range Comments LIPASE (test code=60A) 180 IU/L 73-393 COMPREHENSIVE METABOLIC FREED *WW*2017-12-07 09:05:00* Test Item Value Reference Range Comments GLUCOSE (test code=06D) 197 mg/dL 75-100 SODIUM (test code=01A) 140 mmol/L 136-145 POTASSIUM (test code=01B) 3.7 mmol/L 3.6-5.1 CHLORIDE (test code=04A) 104 mmol/L 98-107 CO2 (test code=02A) 29 mmol/L 22-32 ANION GAP (test code=ANG) 10.7 mmol/L BUN (test code=05D) 13 mg/dL 7-18 CREATININE (test code=03E) 0.6 mg/dL 0.4-1.1 BUN/CREA (test code=BCR) 22 12-20 CALCIUM (test code=09D) 8.6 mg/dL 8.3-9.5 BILI TOTAL (test code=11A) 0.4 mg/dL 0.2-1.0 PROTEIN (test code=07D) 7.2 g/dL 6.4-8.2 ALBUMIN (test code=08D) 3.3 g/dL 3.5-4.8 GLOBULIN (test code=GLB) 3.8 g/dL 1.5-3.8 ALB/GLOB (test code=AGRR) 0.9 1.0-2.6 ALK PHOS (test code=35A) 112 IU/L 42-121 AST (test code=30A) 12 IU/L <=42 ALT (test code=31A) 21 IU/L <=78 CBC (INCLUDES AUTOMATED DIFFERENTIAL)*[id number] 08:53:00* Test Item Value Reference Range Comments WBC (test code=WBC) 9.3 10\S\3/uL 4.5-11.0 RBC (test code=RBC) 4.46 10\S\6/uL 4.20-5.60 HGB (test code=HBG) 13.1 g/dL 12.0-15.5 HCT (test code=HCT) 40.1 % 35.0-44.0 MCV (test code=MCV) 89.9 fL 81.0-99.0 MCH (test code=MCH) 29.4 pg 27.0-31.0 MCHC (test code=MCHC) 32.7 g/dL 32.0-36.0 RDW (test code=RDW) 13.7 % 11.5-14.5 PLT (test code=PLT) 340 10\S\3/uL 130-400 MPV (test code=MPV) 9.5 fL 9.4-12.4 NEUTROP # (test code=NE#) 6.3 10\S\3/uL 1.6-8.0 LYMPH # (test code=LY#) 2.2 10\S\3/uL 1.1-3.5 MONOCYTE # (test code=MO#) 0.6 10\S\3/uL 0.0-1.1 EOSINOPH # (test code=EO#) 0.1 10\S\3/uL 0.0-0.7 BASOPHIL # (test code=BA#) 0.1 10\S\3/uL 0.0-0.3 IG # (test code=IG#) 0.03 10\S\3/uL 0.00-0.06 NRBC # (test code=NRBC#) 0.00 10\S\3/uL 0.00-0.01 NEUTROPH % (test code=NE%) 67.4 % 35.0-73.0 LYMPH % (test code=LY%) 23.7 % 20.0-55.0 MONO % (test code=MO%) 6.4 % 2.5-10.0 EOSINOPH % (test code=EO%) 1.3 % 0.0-5.0 BASOPHIL % (test code=BA%) 0.9 % 0.0-2.0 IG % (test code=IG%) 0.3 % 0.0-0.8 NRBC% (test code=NRBC%) 0.0 % 0.0-0.2 MANDIFF (test code=WMDIFF) NO NO RBC MORPH (test code=WRBCMOR) NORMAL URINALYSIS *WW*2017-12-07 08:43:00* Test Item Value Reference Range Comments COLOR (test code=COLU) YELLOW YELLOW CLARITY (test code=CLA) CLEAR CLEAR GLUCOSE UR (test code=UA GLUCOSE) NEGATIVE NEGATIVE BILI UR (test code=BILE) NEGATIVE NEGATIVE KETONES UR (test code=CHITO) NEGATIVE NEGATIVE SP GRAVITY (test code=SPGR) 1.010 1.005-1.030 PH UR (test code=PH) 7.0 4.5-8.0 PROTEIN UR (test code=PU) NEGATIVE NEGATIVE UROBIL UR (test code=UROQ) 0.2 EU/dL 0.2-1.0 NITRITE UR (test code=NITRITE) NEGATIVE NEGATIVE BLOOD UR (test code=UA BLOOD) NEGATIVE NEGATIVE LEUK ES UR (test code=LEUK) NEGATIVE NEGATIVE AUAM (test code=WAUAM) NO NO POCT-GLUCOSE [id number] 08:02:00* Test Item Value Reference Range Comments POC-GLUCOSE METER (BEAKER) (test opfe=8347) 294 mg/dL 70-110 TESTED AT [facility] [address] [place] [address], CHEST WITH IV CONTRAST- PE TEST [id number] 16:28:00Reason for exam:-> short of breatheIs the patient ?->UnknownWhat is the patient's sedation requirement?->No SedationFINAL REPORT Chest CT with contrast, PE protocol INDICATION: short of breatheshort of breathe COMPARISON: No prior studies available [...] post cholecystectomy. The osseous structures demonstrate mild degenerativ e change. IMPRESSION:1. No evidence of pulmonary embolism.2. Scattered atelectas is and scarring bilaterally without focal consolidation. Signed: Rasheed Otte port Verified Date/Time: 11/26/2017 16:28:37 Reading Location: [facility] [id number] [facility] Reading Room Electronically signed by: RASHEED OTT M.D. on 10/2017 04:[address], BRAIN, WITHOUT [id number] 16:04:00Reason for exam:- >LOSS OF CONSCIOUSNESSIs the patient ?->UnknownWhat is the patient's sedation requirement?->No SedationFINAL REPORT CT head without contrast 11/26/2017 4:03 PM CLINICAL HISTORY: LOSS OF CONSCIOUSNESSsyncope TECHNIQUE: Axial noncontrast CT images through the [...] evaluation with MRI is recommended. Signed: Parish Castroort Verified Date/Time: 11/26/2017 16:04:08 Reading Location: [facility] Radiology Reading Room TINE KINASE (CK), TOTAL AND [id number] 16:00:00* Test Item Value Reference Range Comments CREATINE KINASE TOTAL (BEAKER) (test gtoy=836) 63 U/L 25-235 CREATINE KINASE-MB (BEAKER) (test wyht=807) 1.2 ng/mL 0.0-4.9 CREATINE KINASE-MB INDEX (BEAKER) (test ujss=967) 1.9 % CK-MB Reference Range:<5 Normal5-10 Borderline>10 AbnormalPT/[id number] 15:29:00* Test Item Value Reference Range Comments PROTIME (BEAKER) (test xjyu=372) 9.2 seconds 9.3-12.0 INR (BEAKER) (test iafg=892) 0.8 <=5.9 PARTIAL THROMBOPLASTIN TIME (BEAKER) (test lhho=110) 22.3 seconds 23.0-35.0 RECOMMENDED COUMADIN/WARFARIN INR THERAPY RANGESSTANDARD DOSE: 2.0 - 3.0 Inclu tavo: PROPHYLAXIS for venous thrombosis, systemic embolization; TREATMENT for margy ous thrombosis and/or pulmonary embolus.HIGH RISK: Target INR is 2.5-3.5 for pat ients with mechanical heart valves.B-TYPE NATRIURETIC FACTOR (BNP)2017-11-26 15:26:00* Test Item Value Reference Range Comments B-TYPE NATRIURETIC PEPTIDE (BEAKER) (test chxh=444) 23 pg/mL 0-100 TROPONIN [id number] 15:24:00* Test Item Value Reference Range Comments TROPONIN I (BEAKER) (test uhdc=916) < ng/mL 0.00-0.15 Troponin I (TnI) levels must be interpreted in the context of the presenting sym ptoms and the clinical findings. Elevated TnI levels indicate myocardial damage, but are not specific for ischemic heart disease. Elevated TnI levels are seen in patients with other cardiac conditions (including myocarditis and congestive h eart failure), and slight TnI elevations occur in patients with other conditions , including sepsis, renal failure, acidosis, acute neurological disease, and per sistent tachyarrhythmia.BASIC METABOLIC [id number] 15:17:00* Test Item Value Reference Range Comments SODIUM (BEAKER) (test xmtr=099) 138 meq/L 135-148 POTASSIUM (BEAKER) (test njwr=966) 4.3 meq/L 3.6-5.5 CHLORIDE (BEAKER) (test fckq=584) 102 meq/L 98-106 CO2 (BEAKER) (test btbv=147) 26 meq/L 20-29 BLOOD UREA NITROGEN (BEAKER) (test tgxx=664) 13 mg/dL 10-26 CREATININE (BEAKER) (test rvpz=438) 1.02 mg/dL 0.50-1.20 GLUCOSE RANDOM (BEAKER) (test mczf=453) 313 mg/dL 70-110 CALCIUM (BEAKER) (test abrr=288) 10.1 mg/dL 8.5-10.5 EGFR (BEAKER) (test axme=5200) 56 mL/min/1.73 sq m ESTIMATED GFR IS NOT ACCURATE CREATININE CLEARANCE IN PREDICTING GLOMERULAR FILTRATION RATE. ESTIMATED GFR IS NOT APPLICABLE FOR DIALYSIS PATIENTS. RAD, CHEST, 1 VIEW, NON [id number] 15:12:00Reason for exam:->short of breatheIs the patient ?->UnknownFINAL REPORT Comparison: 09/25/2017 TECHNIQUE: Single view of the chest FINDINGS: Lung volumes are low. Curvilinear densities in the left lower lobe may represent atelectasis or pneumonitis. Otherwise lungs are clear. Cardiac silhouette is within normal limits. Aortic calcifications are seen. No acute skeletal abnormality. Signed: Sherwin Ruiz MDReport Verified Date/Time: 11/26/2017 15:12:48 Reading Location: [facility] Radiology Reading Room [id number] 15:11:00* Test Item Value Reference Range Comments MAGNESIUM (BEAKER) (test jhew=786) 2.3 mg/dL 1.5-3.0 CBC W/PLT COUNT & AUTO [id number] 14:56:00* Test Item Value Reference Range Comments WHITE BLOOD CELL COUNT (BEAKER) (test arxa=296) 10.4 K/ L 4.0-10.0 RED BLOOD CELL COUNT (BEAKER) (test ypoy=823) 4.74 M/ L 4.00-5.00 HEMOGLOBIN (BEAKER) (test skho=805) 13.9 GM/DL 12.0-15.0 HEMATOCRIT (BEAKER) (test rouy=770) 42.4 % 36.0-45.0 MEAN CORPUSCULAR VOLUME (BEAKER) (test xlsj=242) 89.5 fL 82.0-99.0 MEAN CORPUSCULAR HEMOGLOBIN (BEAKER) (test dori=776) 29.5 pg 27.0-33.0 MEAN CORPUSCULAR HEMOGLOBIN CONC (BEAKER) (test jfeo=064) 32.9 GM/DL 32.0-36.0 RED CELL DISTRIBUTION WIDTH (BEAKER) (test dsdh=766) 14.8 % 10.3-14.2 PLATELET COUNT (BEAKER) (test hdho=049) 362 K/CU MM 150-430 MEAN PLATELET VOLUME (BEAKER) (test mbnw=635) 7.9 fL 6.5-10.5 NUCLEATED RED BLOOD CELLS (BEAKER) (test jgic=883) 0 /100 WBC 0-0 NEUTROPHILS RELATIVE PERCENT (BEAKER) (test uqgk=671) 67 % LYMPHOCYTES RELATIVE PERCENT (BEAKER) (test haca=899) 27 % MONOCYTES RELATIVE PERCENT (BEAKER) (test pwrk=499) 4 % EOSINOPHILS RELATIVE PERCENT (BEAKER) (test hjib=299) 1 % BASOPHILS RELATIVE PERCENT (BEAKER) (test ztuk=358) 1 % NEUTROPHILS ABSOLUTE COUNT (BEAKER) (test ulat=294) 7.00 K/ L 1.80-8.00 LYMPHOCYTES ABSOLUTE COUNT (BEAKER) (test yuox=601) 2.80 K/ L 1.48-4.50 MONOCYTES ABSOLUTE COUNT (BEAKER) (test cpyx=622) 0.40 K/ L 0.00-1.30 EOSINOPHILS ABSOLUTE COUNT (BEAKER) (test pact=564) 0.10 K/ L 0.00-0.50 BASOPHILS ABSOLUTE COUNT (BEAKER) (test tfjg=046) 0.10 K/ L 0.00-0.20 GLUCOMETER GLUCOSE- LAB USE [id number] 21:38:00* Test Item Value Reference Range Comments GLUCOMETER (test code=GMG) 264 mg/dL 70-100 Meter ID: [id number]: [id number] IBRAHIMA COLBERT AMYLASE AND LIPASE *WW*2017-10-15 20:24:00* Test Item Value Reference Range Comments AMYLASE (test code=10A) 35 U/L 28-100 LIPASE (test code=60A) 280 IU/L 73-393 COMPREHENSIVE METABOLIC FREED *WW*2017-10-15 20:24:00* Test Item Value Reference Range Comments GLUCOSE (test code=06D) 394 mg/dL 75-100 SODIUM (test code=01A) 131 mmol/L 136-145 POTASSIUM (test code=01B) 5.0 mmol/L 3.6-5.1 CHLORIDE (test code=04A) 98 mmol/L 98-107 CO2 (test code=02A) 21 mmol/L 22-32 ANION GAP (test code=ANG) 17.0 mmol/L BUN (test code=05D) 29 mg/dL 7-18 CREATININE (test code=03E) 1.2 mg/dL 0.4-1.1 BUN/CREA (test code=BCR) 23 12-20 CALCIUM (test code=09D) 9.1 mg/dL 8.3-9.5 BILI TOTAL (test code=11A) 0.3 mg/dL 0.2-1.0 PROTEIN (test code=07D) 8.4 g/dL 6.4-8.2 ALBUMIN (test code=08D) 4.1 g/dL 3.5-4.8 GLOBULIN (test code=GLB) 4.3 g/dL 1.5-3.8 ALB/GLOB (test code=AGRR) 0.9 1.0-2.6 ALK PHOS (test code=35A) 137 IU/L 42-121 AST (test code=30A) 10 IU/L <=42 ALT (test code=31A) 20 IU/L <=78 PRO TIME AND PTT *WW*2017-10-15 20:22:00* Test Item Value Reference Range Comments PT (test code=TT) 10.8 s 9.8-13.6 INR (test code=INR) 0.9 INRH (test code=INRH) SUGGESTED THERAPEUTIC RANGE FOR INR: 2.5 - 3.5 For Patients with Prosthetic Valves or Patients with recurrent Thromboembolic Events 2.0 - 3.0 For Most Other Applications PTT (test code=PTT) 20.8 s 20.2-38.0 PTTH (test code=PTTH) To monitor the effectiveness of heparin, we offer the Anti-Xa (Heparin Assay). It can be used for either unfractionated or LMW Heparin. Order Code is ANTI-XA URINALYSIS WITH MICRO *WW*2017-10-15 20:11:00* Test Item Value Reference Range Comments COLOR (test code=COLU) Prole YELLOW CLARITY (test code=CLA) SLT HAZY CLEAR GLUCOSE UR (test code=UA GLUCOSE) 3+ NEGATIVE BILI UR (test code=BILE) NEGATIVE NEGATIVE KETONES UR (test code=CHITO) NEGATIVE NEGATIVE SP GRAVITY (test code=SPGR) 1.020 1.005-1.030 PH UR (test code=PH) 6.0 4.5-8.0 PROTEIN UR (test code=PU) 1+ NEGATIVE UROBIL UR (test code=UROQ) 2.0 EU/dL 0.2-1.0 NITRITE UR (test code=NITRITE) POSITIVE NEGATIVE BLOOD UR (test code=UA BLOOD) Negative NEGATIVE LEUK ES UR (test code=LEUK) Negative NEGATIVE WBC UR (test code=UWBC) 0 /HPF 0-5 RBC UR (test code=URBC) 0 /HPF 0-2 EPITH UR (test code=UEPC) FEW /LPF FEW BACTERIA UR (test code=UBACT) NONE /HPF NONE CAST UR (test code=CAST) /LPF NONE CRYSTAL UR (test code=CRYU) / LPF NONE MUCUS UR (test code=MUC) / HPF NONE AMORPH UR (test code=LULY) / HPF NONE TRICH UR (test code=UTRICH) /HPF NONE YEAST UR (test code=UY) /HPF NONE SPERM UR (test code=USPERM) /HPF NONE CBC (INCLUDES AUTOMATED DIFFERENTIAL)*[id number] 20:04:00* Test Item Value Reference Range Comments WBC (test code=WBC) 14.6 10\S\3/uL 4.5-11.0 RBC (test code=RBC) 4.75 10\S\6/uL 4.20-5.60 HGB (test code=HBG) 13.7 g/dL 12.0-15.5 HCT (test code=HCT) 40.7 % 35.0-44.0 MCV (test code=MCV) 85.7 fL 81.0-99.0 MCH (test code=MCH) 28.8 pg 27.0-31.0 MCHC (test code=MCHC) 33.7 g/dL 32.0-36.0 RDW (test code=RDW) 13.2 % 11.5-14.5 PLT (test code=PLT) 440 10\S\3/uL 130-400 MPV (test code=MPV) 10.0 fL 9.4-12.4 NEUTROP # (test code=NE#) 12.1 10\S\3/uL 1.6-8.0 LYMPH # (test code=LY#) 1.9 10\S\3/uL 1.1-3.5 MONOCYTE # (test code=MO#) 0.4 10\S\3/uL 0.0-1.1 EOSINOPH # (test code=EO#) 0.0 10\S\3/uL 0.0-0.7 BASOPHIL # (test code=BA#) 0.0 10\S\3/uL 0.0-0.3 IG # (test code=IG#) 0.09 10\S\3/uL 0.00-0.06 NRBC # (test code=NRBC#) 0.00 10\S\3/uL 0.00-0.01 NEUTROPH % (test code=NE%) 83.2 % 35.0-73.0 LYMPH % (test code=LY%) 13.2 % 20.0-55.0 MONO % (test code=MO%) 2.9 % 2.5-10.0 EOSINOPH % (test code=EO%) 0.0 % 0.0-5.0 BASOPHIL % (test code=BA%) 0.1 % 0.0-2.0 IG % (test code=IG%) 0.6 % 0.0-0.8 NRBC% (test code=NRBC%) 0.0 % 0.0-0.2 MANDIFF (test code=WMDIFF) NO NO RBC MORPH (test code=WRBCMOR) NORMAL DIRECT STREP GROUP [id number] 09:03:00* Test Item Value Reference Range Comments Culture Observations (test code=COB1) NO BETA HEMOLYTIC STREPTOCOCCUS ISOLATED Direct Exam (test code=DE3) NEGATIVE FOR STREP A ANTIGEN DIRECT INFLUENZA A AND B [id number] 18:33:00* Test Item Value Reference Range Comments Direct Exam (test code=DE3) PRESUMPTIVE NEGATIVE FOR THE PRESENCE OF INFLUENZA ANTIGEN COMPREHENSIVE METABOLIC FREED *WW*2017-08-01 02:14:00* Test Item Value Reference Range Comments GLUCOSE (test code=06D) 331 mg/dL 75-100 SODIUM (test code=01A) 138 mmol/L 136-145 POTASSIUM (test code=01B) 3.8 mmol/L 3.6-5.1 CHLORIDE (test code=04A) 101 mmol/L 98-107 CO2 (test code=02A) 29 mmol/L 22-32 ANION GAP (test code=ANG) 11.8 mmol/L BUN (test code=05D) 14 mg/dL 7-18 CREATININE (test code=03E) 0.7 mg/dL 0.4-1.1 BUN/CREA (test code=BCR) 19 12-20 CALCIUM (test code=09D) 9.2 mg/dL 8.3-9.5 BILI TOTAL (test code=11A) 0.3 mg/dL 0.2-1.0 PROTEIN (test code=07D) 7.8 g/dL 6.4-8.2 ALBUMIN (test code=08D) 3.6 g/dL 3.5-4.8 GLOBULIN (test code=GLB) 4.2 g/dL 1.5-3.8 ALB/GLOB (test code=AGRR) 0.9 1.0-2.6 ALK PHOS (test code=35A) 154 IU/L 42-121 AST (test code=30A) 13 IU/L <=42 ALT (test code=31A) 24 IU/L <=78 URINALYSIS *WW*2017-08-01 02:13:00* Test Item Value Reference Range Comments COLOR (test code=COLU) YELLOW YELLOW CLARITY (test code=CLA) CLEAR CLEAR GLUCOSE UR (test code=UA GLUCOSE) 3+ NEGATIVE BILI UR (test code=BILE) NEGATIVE NEGATIVE KETONES UR (test code=CHITO) NEGATIVE NEGATIVE SP GRAVITY (test code=SPGR) 1.020 1.005-1.030 PH UR (test code=PH) 6.0 4.5-8.0 PROTEIN UR (test code=PU) NEGATIVE NEGATIVE UROBIL UR (test code=UROQ) 0.2 EU/dL 0.2-1.0 NITRITE UR (test code=NITRITE) NEGATIVE NEGATIVE BLOOD UR (test code=UA BLOOD) NEGATIVE NEGATIVE LEUK ES UR (test code=LEUK) NEGATIVE NEGATIVE AUAM (test code=WAUAM) NO NO AMYLASE AND LIPASE *WW*2017-08-01 02:03:00* Test Item Value Reference Range Comments AMYLASE (test code=10A) 31 U/L 28-100 LIPASE (test code=60A) 269 IU/L 73-393 PRO TIME AND PTT *WW*2017-08-01 01:51:00* Test Item Value Reference Range Comments PT (test code=TT) 10.2 s 9.8-13.6 INR (test code=INR) 0.9 INRH (test code=INRH) SUGGESTED THERAPEUTIC RANGE FOR INR: 2.5 - 3.5 For Patients with Prosthetic Valves or Patients with recurrent Thromboembolic Events 2.0 - 3.0 For Most Other Applications PTT (test code=PTT) 22.9 s 20.2-38.0 PTTH (test code=PTTH) To monitor the effectiveness of heparin, we offer the Anti-Xa (Heparin Assay). It can be used for either unfractionated or LMW Heparin. Order Code is ANTI-XA CBC (INCLUDES AUTOMATED DIFFERENTIAL)*[id number] 01:34:00* Test Item Value Reference Range Comments WBC (test code=WBC) 9.7 10\S\3/uL 4.5-11.0 RBC (test code=RBC) 5.09 10\S\6/uL 4.20-5.60 HGB (test code=HBG) 14.4 g/dL 12.0-15.5 HCT (test code=HCT) 44.2 % 35.0-44.0 MCV (test code=MCV) 86.8 fL 81.0-99.0 MCH (test code=MCH) 28.3 pg 27.0-31.0 MCHC (test code=MCHC) 32.6 g/dL 32.0-36.0 RDW (test code=RDW) 12.4 % 11.5-14.5 PLT (test code=PLT) 303 10\S\3/uL 130-400 MPV (test code=MPV) 10.0 fL 9.4-12.4 NEUTROP # (test code=NE#) 6.2 10\S\3/uL 1.6-8.0 LYMPH # (test code=LY#) 3.0 10\S\3/uL 1.1-3.5 MONOCYTE # (test code=MO#) 0.4 10\S\3/uL 0.0-1.1 EOSINOPH # (test code=EO#) 0.1 10\S\3/uL 0.0-0.7 BASOPHIL # (test code=BA#) 0.1 10\S\3/uL 0.0-0.3 IG # (test code=IG#) 0.02 10\S\3/uL 0.00-0.06 NRBC # (test code=NRBC#) 0.00 10\S\3/uL 0.00-0.01 NEUTROPH % (test code=NE%) 63.9 % 35.0-73.0 LYMPH % (test code=LY%) 30.4 % 20.0-55.0 MONO % (test code=MO%) 4.3 % 2.5-10.0 EOSINOPH % (test code=EO%) 0.6 % 0.0-5.0 BASOPHIL % (test code=BA%) 0.6 % 0.0-2.0 IG % (test code=IG%) 0.2 % 0.0-0.8 NRBC% (test code=NRBC%) 0.0 % 0.0-0.2 MANDIFF (test code=WMDIFF) NO NO RBC MORPH (test code=WRBCMOR) NORMAL COMPREHENSIVE METABOLIC FREED *WW*2016-12-30 03:49:00* Test Item Value Reference Range Comments GLUCOSE (test code=06D) 271 mg/dL 75-100 SODIUM (test code=01A) 139 mmol/L 136-145 POTASSIUM (test code=01B) 4.3 mmol/L 3.6-5.1 CHLORIDE (test code=04A) 99 mmol/L 98-107 CO2 (test code=02A) 28 mmol/L 22-32 ANION GAP (test code=ANG) 16.3 mmol/L BUN (test code=05D) 15 mg/dL 7-18 CREATININE (test code=03E) 0.7 mg/dL 0.4-1.1 BUN/CREA R (test code=BCR) 20 12-20 CALCIUM (test code=09D) 8.9 mg/dL 8.3-9.5 BILI TOTAL (test code=11A) 0.3 mg/dL 0.2-1.0 PROTEIN (test code=07D) 6.7 g/dL 6.4-8.2 ALBUMIN (test code=08D) 3.5 g/dL 3.5-4.8 GLOBULIN (test code=GLB) 3.2 g/dL 1.5-3.8 ALB/GLOB (test code=AGRR) 1.1 1.0-2.6 ALK PHOS (test code=35A) 145 IU/L 42-121 AST (test code=30A) 21 IU/L <=42 ALT (test code=31A) 25 IU/L <=78 CARDIAC PROFILE 2016-12-30 03:46:00* Test Item Value Reference Range Comments TROPONIN I (test code=A84) <0.015 ng/mL 0.000-0.045 CKMB (test code=A49) <1.0 ng/mL <=3.6 CPK (test code=32A) 55 IU/L 26-192 CBC (INCLUDES AUTOMATED DIFFERENTIAL)*[id number] 03:30:00* Test Item Value Reference Range Comments WBC (test code=WBC) 10.8 10\S\3/uL 4.5-11.0 RBC (test code=RBC) 4.42 10\S\6/uL 4.20-5.60 HGB (test code=HBG) 12.8 g/dL 12.0-15.5 HCT (test code=HCT) 38.9 % 35.0-44.0 MCV (test code=MCV) 88.0 fL 81.0-99.0 MCH (test code=MCH) 29.0 pg 27.0-31.0 MCHC (test code=MCHC) 32.9 g/dL 32.0-36.0 RDW (test code=RDW) 12.4 % 11.5-14.5 PLT (test code=PLT) 303 10\S\3/uL 130-400 MPV (test code=MPV) 9.9 fL 9.4-12.4 NEUTROP # (test code=NE#) 6.5 10\S\3/uL 1.6-8.0 LYMPH # (test code=LY#) 3.3 10\S\3/uL 1.1-3.5 MONOCYTE # (test code=MO#) 0.7 10\S\3/uL 0.0-1.1 EOSINOPH # (test code=EO#) 0.1 10\S\3/uL 0.0-0.7 BASOPHIL # (test code=BA#) 0.1 10\S\3/uL 0.0-0.3 IG # (test code=IG#) 0.04 10\S\3/uL 0.00-0.06 NRBC # (test code=NRBC#) 0.00 10\S\3/uL 0.00-0.01 NEUTROPH % (test code=NE%) 60.3 % 35.0-73.0 LYMPH % (test code=LY%) 30.8 % 20.0-55.0 MONO % (test code=MO%) 6.5 % 2.5-10.0 EOSINOPH % (test code=EO%) 1.3 % 0.0-5.0 BASOPHIL % (test code=BA%) 0.7 % 0.0-2.0 IG % (test code=IG%) 0.4 % 0.0-0.8 NRBC% (test code=NRBC%) 0.0 % 0.0-0.2 MANDIFF (test code=WMDIFF) NO NO RBC MORPH (test code=WRBCMOR) NORMAL XR CHEST 1 VIEW PORTABLE 2016-12-30 03:17:19Examination: Portable chest After hours service provided on 12/30/2016 3:16 AM.Location code: [id number]: Chest 02/07/11Discussion:Clinical history is remarkable for chest pain. Cardiac silhouette is upperlimits of normal in size. No consolidation, effusion, or pneumothorax isappreciated. Osseous structures are unremarkable.Impression:1. No acute cardiopulmonary abnormality.COMPREHENSIVE METABOLIC FREED 2016-10-31 00:34:00* Test Item Value Reference Range Comments GLUCOSE (test code=06D) 272 mg/dL 75-100 SODIUM (test code=01A) 135 mmol/L 136-145 POTASSIUM (test code=01B) 4.0 mmol/L 3.6-5.1 CHLORIDE (test code=04A) 101 mmol/L 98-107 CO2 (test code=02A) 28 mmol/L 22-32 ANION GAP (test code=ANG) 10.0 mmol/L BUN (test code=05D) 15 mg/dL 7-18 CREATININE (test code=03E) 0.7 mg/dL 0.4-1.1 BUN/CREA R (test code=BCR) 20 12-20 CALCIUM (test code=09D) 9.0 mg/dL 8.3-9.5 BILI TOTAL (test code=11A) 0.3 mg/dL 0.2-1.0 PROTEIN (test code=07D) 7.7 g/dL 6.4-8.2 ALBUMIN (test code=08D) 3.3 g/dL 3.5-4.8 GLOBULIN (test code=GLB) 4.4 g/dL 1.5-3.8 ALB/GLOB (test code=AGRR) 0.8 1.0-2.6 ALK PHOS (test code=35A) 140 IU/L 42-121 AST (test code=30A) 27 IU/L <=42 ALT (test code=31A) 37 IU/L <=78 AMYLASE AND LIPASE 2016-10-31 00:34:00* Test Item Value Reference Range Comments AMYLASE (test code=10A) 39 U/L 28-100 LIPASE (test code=60A) 445 IU/L 73-393 CBC WITH MORPHOLOGY 2016-10-31 00:32:00* Test Item Value Reference Range Comments WBC (test code=WBC) 9.2 10\S\3/uL 4.5-11.0 RBC (test code=RBC) 4.50 10\S\6/uL 4.20-5.60 HGB (test code=HBG) 13.2 g/dL 12.0-15.5 HCT (test code=HCT) 39.9 % 35.0-44.0 MCV (test code=MCV) 88.7 fL 81.0-99.0 MCH (test code=MCH) 29.3 pg 27.0-31.0 MCHC (test code=MCHC) 33.1 g/dL 32.0-36.0 RDW (test code=RDW) 13.0 % 11.5-14.5 PLT (test code=PLT) 253 10\S\3/uL 130-400 MPV (test code=MPV) 11.4 fL 9.4-12.4 NEUTROP # (test code=NE#) 4.4 10\S\3/uL 1.6-8.0 LYMPH # (test code=LY#) 3.8 10\S\3/uL 1.1-3.5 MONOCYTE # (test code=MO#) 0.5 10\S\3/uL 0.0-1.1 EOSINOPH # (test code=EO#) 0.4 10\S\3/uL 0.0-0.7 BASOPHIL # (test code=BA#) 0.1 10\S\3/uL 0.0-0.3 IG # (test code=IG#) 0.03 10\S\3/uL 0.00-0.06 NRBC # (test code=NRBC#) 0.00 10\S\3/uL 0.00-0.01 NEUTROPH % (test code=NE%) 47.1 % 35.0-73.0 LYMPH % (test code=LY%) 41.6 % 20.0-55.0 MONO % (test code=MO%) 5.9 % 2.5-10.0 EOSINOPH % (test code=EO%) 3.8 % 0.0-5.0 BASOPHIL % (test code=BA%) 1.3 % 0.0-2.0 IG % (test code=IG%) 0.3 % 0.0-0.8 NRBC% (test code=NRBC%) 0.0 % 0.0-0.2 PLT EST (test code=PLTEST) ADEQUATE ADEQUATE no platelet clumps seen on slide PLT MORPH (test code=PLTMOR) NORMAL (1.5-3 um) NORMAL URINALYSIS *WW*2016-10-31 00:26:00* Test Item Value Reference Range Comments COLOR (test code=COLU) YELLOW YELLOW CLARITY (test code=CLA) CLEAR CLEAR GLUCOSE UR (test code=UA GLUCOSE) NEGATIVE NEGATIVE BILI UR (test code=BILE) NEGATIVE NEGATIVE KETONES UR (test code=CHITO) NEGATIVE NEGATIVE SP GRAVITY (test code=SPGR) 1.020 1.005-1.030 PH UR (test code=PH) 6.0 4.5-8.0 PROTEIN UR (test code=PU) NEGATIVE NEGATIVE UROBIL UR (test code=UROQ) 0.2 EU/dL 0.2-1.0 NITRITE UR (test code=NITRITE) NEGATIVE NEGATIVE BLOOD UR (test code=UA BLOOD) NEGATIVE NEGATIVE LEUK ES UR (test code=LEUK) NEGATIVE NEGATIVE AUAM (test code=WAUAM) NO NO CT ABDOMEN AND PELVIS WITHOUT CONTRAST *WW*2016-10-03 16:27:54EXAM: CT abdomen and pelvis without contrastLocation: A1 INDICATION: Lower abdominal painCOMPARISON: NoneTECHNIQUE: Axial images of the abdomen and pelvis were obtained withoutcontrast. Coronal and sagittal reformatted images were performed DISCUSSION:Lower thorax: Unremarkable.Hepatobiliary: Moderate to marked hepatic steatosis. No gross evidence offocal liver lesion. No biliary ductal dilatation .Gallbladder: Surgically absent.Spleen: Unremarkable.Pancreas: Unremarkable.Ki dneys: No urinary tract calculi, hydronephrosis, or gross evidence of solidrena l mass.Adrenals: Unremarkable.Lymph nodes: No lymphadenopathy.Peritoneum/retrop eritoneum: No intraabdominal free air or free fluid.Vessels: Mild atheroscleroti c calcification, without abdominal aortic aneurysm.Pelvic organs/bladder: Calci fication associated with the uterine fundus ismost likely due to a partially deg enerated fibroid. The uterus, adnexa, bladderotherwise unremarkable.Bowel: Moder ate to marked sigmoid and descending colonic diverticulosis isseen, without dive rticulitis. The appendix is not identified, but there is nosecondary evidence of appendicitis.Bones/soft tissues: No fracture or evidence of bony neoplastic pro cess. Nohernia is seen.IMPRESSION:1. No urinary tract calculi or evidence of acu te abdominal abnormality. Theappendix is not identified, but there is no seconda ry evidence of appendicitis.2. Additional findings include colonic diverticulosi s, prior cholecystectomy,hepatic steatosis, and probable partially degenerated u terine fundal fibroid.One or more of the following dose reduction techniques wer e used: Automatedexposure control, adjustment of the mA and/or kV according to p atient size,and/or utilization of iterative reconstruction technique.DLP: 1255 m Gy-cm CTDI 24 mGyCOMPREHENSIVE METABOLIC [id number] 15:25:00* Test Item Value Reference Range Comments GLUCOSE (test code=06D) 352 mg/dL 75-100 SODIUM (test code=01A) 136 mmol/L 136-145 POTASSIUM (test code=01B) 3.6 mmol/L 3.6-5.1 CHLORIDE (test code=04A) 101 mmol/L 98-107 CO2 (test code=02A) 28 mmol/L 22-32 ANION GAP (test code=ANG) 10.6 mmol/L BUN (test code=05D) 14 mg/dL 7-18 CREATININE (test code=03E) 0.9 mg/dL 0.4-1.1 BUN/CREA R (test code=BCR) 16 12-20 CALCIUM (test code=09D) 8.7 mg/dL 8.3-9.5 BILI TOTAL (test code=11A) 0.2 mg/dL 0.2-1.0 PROTEIN (test code=07D) 7.2 g/dL 6.4-8.2 ALBUMIN (test code=08D) 3.4 g/dL 3.5-4.8 GLOBULIN (test code=GLB) 3.8 g/dL 1.5-3.8 ALB/GLOB (test code=AGRR) 0.9 1.0-2.6 ALK PHOS (test code=35A) 141 IU/L 42-121 AST (test code=30A) 15 IU/L <=42 ALT (test code=31A) 23 IU/L <=78 AMYLASE AND [id number] 15:20:00* Test Item Value Reference Range Comments AMYLASE (test code=10A) 29 U/L 28-100 LIPASE (test code=60A) 232 IU/L 73-393 [id number] 15:20:00* Test Item Value Reference Range Comments MAGNESIUM (test code=48A) 2.1 mg/dL 1.8-2.4 CBC (INCLUDES AUTOMATED DIFFERENTIAL)2016-10-03 15:15:00* Test Item Value Reference Range Comments WBC (test code=WBC) 10.0 10\S\3/uL 4.5-11.0 RBC (test code=RBC) 4.54 10\S\6/uL 4.20-5.60 HGB (test code=HBG) 13.3 g/dL 12.0-15.5 HCT (test code=HCT) 40.5 % 35.0-44.0 MCV (test code=MCV) 89.2 fL 81.0-99.0 MCH (test code=MCH) 29.3 pg 27.0-31.0 MCHC (test code=MCHC) 32.8 g/dL 32.0-36.0 RDW (test code=RDW) 12.8 % 11.5-14.5 PLT (test code=PLT) 380 10\S\3/uL 130-400 MPV (test code=MPV) 9.8 fL 9.4-12.4 NEUTROP # (test code=NE#) 7.1 10\S\3/uL 1.6-8.0 LYMPH # (test code=LY#) 2.3 10\S\3/uL 1.1-3.5 MONOCYTE # (test code=MO#) 0.4 10\S\3/uL 0.0-1.1 EOSINOPH # (test code=EO#) 0.1 10\S\3/uL 0.0-0.7 BASOPHIL # (test code=BA#) 0.1 10\S\3/uL 0.0-0.3 IG # (test code=IG#) 0.06 10\S\3/uL 0.00-0.06 NRBC # (test code=NRBC#) 0.00 10\S\3/uL 0.00-0.01 NEUTROPH % (test code=NE%) 70.6 % 35.0-73.0 LYMPH % (test code=LY%) 22.6 % 20.0-55.0 MONO % (test code=MO%) 4.4 % 2.5-10.0 EOSINOPH % (test code=EO%) 1.0 % 0.0-5.0 BASOPHIL % (test code=BA%) 0.8 % 0.0-2.0 IG % (test code=IG%) 0.6 % 0.0-0.8 NRBC% (test code=NRBC%) 0.0 % 0.0-0.2 MANDIFF (test code=MDIFF) NO NO RBC MORPH (test code=RBCMOR) NORMAL [id number] 15:14:00* Test Item Value Reference Range Comments COLOR (test code=COLU) YELLOW YELLOW CLARITY (test code=CLA) CLEAR CLEAR GLUCOSE UR (test code=UA GLUCOSE) 3+ NEGATIVE BILI UR (test code=BILE) NEGATIVE NEGATIVE KETONES UR (test code=CHITO) NEGATIVE NEGATIVE SP GRAVITY (test code=SPGR) 1.010 1.005-1.030 PH UR (test code=PH) 6.5 4.5-8.0 PROTEIN UR (test code=PU) NEGATIVE NEGATIVE UROBIL UR (test code=UROQ) 0.2 EU/dL 0.2-1.0 NITRITE UR (test code=NITRITE) NEGATIVE NEGATIVE BLOOD UR (test code=UA BLOOD) NEGATIVE NEGATIVE LEUK ES UR (test code=LEUK) NEGATIVE NEGATIVE
[2018-09-18] MEDS ORDERED: MORPHINE SULFATE INJ 4 MG/ML INJ 1ML IV STA (01:58)
[2018-09-18] MEDS ORDERED: SODIUM CHLORIDE 0.9% 1000ML 1,000 ML IV STA (01:58)
[2018-09-18] MEDS ORDERED: FAMOTIDINE 20 MG/2 ML VIAL IV ONE (02:00)
[2018-09-18] MEDS ORDERED: ONDANSETRON HCL INJ 2MG/ML 2ML 2 MG/ML VIAL IV ONE (02:00)
[2018-09-18 02:21] LABS: BASOPHILS # (AUTO) 0.1 (0.0-0.1); BASOPHILS % 0.6 % (0.0-1.0); EOSINOPHILS # (AUTO) 0.1 (0.0-0.4); EOSINOPHILS % 1.1 % (0.0-6.0); HEMATOCRIT 39.4 % (34.2-44.1); LYMPHOCYTES # (AUTO) 4.4 (1.0-3.2); LYMPHOCYTES % 40.5 % (18.0-39.1); MEAN CORPUSCULAR HEMOGLOBIN 29.3 pg (28-32); MEAN CORPUSCULAR VOLUME 88.9 fL (81-99); MONOCYTES # (AUTO) 0.6 (0.2-0.8); MONOCYTES % 5.3 % (4.4-11.3); NEUTROPHILS # (AUTO) 5.7 (2.1-6.9); NEUTROPHILS % 52.2 % (38.7-80.0); PLATELET COUNT 319 x10e3/uL (140-360); RED BLOOD COUNT 4.43 x10e6/uL (3.6-5.1); RED CELL DISTRIBUTION WIDTH 12.9 % (11.7-14.4)
[2018-09-18] MEDS ORDERED: KETOROLAC TROMETHAMINE 30 MG/ML VIAL IV STA (02:31)
[2018-09-18 02:32] LABS: CLARITY,URINE CLEAR (CLEAR); COLOR,URINE YELLOW (YELLOW); LEUKOCYTE ESTERASE ,URINE NEGATIVE (NEGATIVE); NITRITE,URINE NEGATIVE (NEGATIVE); PROTEIN,URINE DIPSTICK NEGATIVE (NEGATIVE)
[2018-09-18 02:33] LABS: BILIRUBIN,URINE NEGATIVE (NEGATIVE); KETONES,URINE NEGATIVE (NEGATIVE); URINE UROBILINOGEN 0.2 mg/dL (0.2 - 1)
[2018-09-18] MEDS ORDERED: KETOROLAC TROMETHAMINE 30 MG/ML VIAL ONE (02:34)
[2018-09-18 02:39] LABS: ALANINE AMINOTRANSFERASE 15 IU/L (0-55); ALBUMIN 3.2 g/dL (3.5-5.0); ALBUMIN/GLOBULIN RATIO 0.9 (0.8-2.0); ALKALINE PHOSPHATASE 121 IU/L (40-150); AMYLASE 40 U/L (25-125); ANION GAP 10.9 mmol/L (8-16); BLOOD UREA NITROGEN 16 mg/dL (7-26); BUN/CREATININE RATIO 19 (6-25); CALCIUM 9.5 mg/dL (8.4-10.2); CARBON DIOXIDE 28 mmol/L (22-29); CHLORIDE 104 mmol/L (98-107); CREATININE, SERUM 0.83 mg/dL (0.57-1.11); EST GLOMERULAR FILTRATION RATE > 60 ML/MIN (60-); GLUCOSE 251 mg/dL (74-118); LIPASE 74 U/L (8-78); POTASSIUM 3.9 mmol/L (3.5-5.1); SODIUM 139 mmol/L (136-145)
[2018-09-18 02:40] LABS: BACTERIA,URINE FEW /HPF; EPITHELIAL CELLS,URINE RARE /LPF; WBC,URINE (MAN) 0-5 /HPF (0-5)
[2018-09-18 03:21] VITALS: BP 101/54
== END 2018-09-18 03:43 | disposition home or self-care (01) ==
LOC: ER 01:42
DX: R10.13 Epigastric pain (principal); R11.0 Nausea; K29.00 Acute gastritis without bleeding
CPT/HCPCS: 36415; 80053; 81001; 82150; 83690; 85025; 96374; 99283; J1885; J2405; J7030